=== PATIENT | female | born 1980 ===

== ENCOUNTER 2017-07-29 07:10 | Day surgery (SDC) | payer OTHER ==
[2017-07-21 09:36] VITALS: BMI 27.4
[2017-07-29 09:03] LABS: BASO % 0.5 % (0.0-2.0); EOS # 0.1 K/uL (0.0-0.7); LYMPH # 2.2 K/uL (1.0-4.3); LYMPH % 37.3 % (20.0-40.0); MEAN CELL VOLUME 83.8 fl (81.0-99.0); MEAN CORPUSCULAR HGB CONC 33.4 g/dL (33.0-37.0); MEAN PLATELET VOLUME 8.3 fl (7.2-11.7); MONO # 0.4 K/uL (0.0-0.8); MONO % 6.7 % (0.0-10.0); NEUT # 3.1 K/uL (1.8-7.0); NEUT % 53.5 % (50.0-75.0); RBC 4.49 Mil/uL (3.80-5.20); RED CELL DISTRIBUTION WIDTH 13.5 % (11.5-14.5); WHITE BLOOD COUNT 5.9 K/uL (4.8-10.8)
[2017-07-29] MEDS ORDERED: Lactated Ringer's 1,000 ML IV ONE (09:10)
[2017-07-29] MEDS ORDERED: Propofol 10 mg/ml Inj (20 ML) ONE (09:11)
[2017-07-29 09:13] LABS: HEMOGLOBIN 12.6 g/dL (12.0-16.0)
[2017-07-29] MEDS ORDERED: Dexamethasone 4 mg/1 ml ONE (09:13)
[2017-07-29 09:19] VITALS: RESP 18
[2017-07-29] MEDS ORDERED: Midazolam 2 MG/2 ML VIAL ONE (09:52)
[2017-07-29] MEDS ORDERED: HYDROmorphone 0.5 mg/0.5 ml ISec IVP PRN (10:47)
[2017-07-29] MEDS ORDERED: Lactated Ringer's 1,000 ML IV SCH (11:00)
[2017-07-29 12:50] VITALS: O2SAT 98
[2017-07-29 13:29] VITALS: BP 99/55; PULSE 78; TEMP 97.7
--- NOTE | 2017-08-07 01:02 | OP ---
PROCEDURE DATE: 07/29/2017 PREOPERATIVE DIAGNOSIS: Abnormal bleeding. POSTOPERATIVE DIAGNOSIS: Abnormal bleeding. PROCEDURE: Hysteroscopy, MyoSure and D and C. SURGEON: Brandyn Husain MD ANESTHESIA ADMINISTERED BY: Abe Patel MD TYPE OF ANESTHESIA: General anesthesia. FINDINGS: Hyperplastic tissue and possible polyps. ESTIMATED BLOOD LOSS: Minimal. DESCRIPTION OF PROCEDURE: With the patient in the dorsal lithotomy position under general anesthesia. The patient was prepped and draped in the usual sterile manner. A straight cath was used to empty the bladder after which a cervix was grasped anteriorly with single-tooth tenaculum, weighted-speculum placed in the posterior vagina and cervix was dilated. Following this, a hysteroscope was introduced into the uterine cavity and visualized what appeared to be polyp and hyperplastic tissue. A MyoSure was then introduced and some of the contents were removed. After this was done, MyoSure was removed and then scrapping was done obtaining small amount of tissue. The patient tolerated the procedure well. All the instruments were removed. Tolerated procedure well and was in satisfactory condition on the way to recovery room. Brandyn Husain MD
== END 2017-07-29 14:05 | disposition home or self-care (01) ==
LOC: H.OPSURG 07:10
PROVIDERS: ATTEND Specialist
DX: N93.9 Abnormal uterine and vaginal bleeding, unspecified (principal)
CPT/HCPCS: 36415; 58558; 85025; 88305; J1100; J1885; J2001; J2250; J2405; J2704; J2765; J3010; J7030; J7120